=== PATIENT | female | born 1970 | race Caucasian/White ===

== ENCOUNTER 2021-11-21 14:11 | Emergency (ER) | payer BC ==
[~2021-11-21] VITALS: Ht 165.1 cm; Wt 88.6 kg
[2021-11-21 14:22] VITALS: TEMP 99.2
[2021-11-21 15:12] LABS: BASO % 0.3 % (0.0-2.0); EOS # 0.1 K/mm3 (0.0-0.7); EOS % 1.4 % (0.0-4.0); GRAN # 8.6 K/mm3 (1.4-6.5); GRAN % 86.1 % (42.2-75.2); HEMATOCRIT 44.8 % (37.0-47.0); LYMPH # 0.7 K/mm3 (1.2-3.4); MEAN CELL VOLUME 94 fl (80.0-100.0); MEAN CORPUSCULAR HEMOGLOBIN 32 pg (27-31); MEAN CORPUSCULAR HGB CONC 34 g/dl (33.0-37.0); MEAN PLATELET VOLUME 10.8 fl (7.4-10.4); MONO # 0.5 K/mm3 (0.1-0.6); MONO % 4.8 % (1.7-9.3); PLATELET COUNT 231 K/mm3 (130-400); RED BLOOD COUNT 4.76 M/mm3 (4.10-5.30); REDCELL DISTRIBUTION WIDTH-CV 13.3 % (11.5-14.5)
[2021-11-21 15:27] LABS: BILIRUBIN,TOTAL 0.9 mg/dL (0.2-1.2); CALCIUM 8.7 mg/dL (8.4-10.2); CREATININE, serum 0.73 mg/dL (0.57-1.11); POTASSIUM 3.7 mmol/L (3.5-4.5); TOTAL PROTEIN 7.2 gm/dL (6.2-8.1)
[2021-11-21 15:52] LABS: COLLECTION METHOD CLEAN CATCH
[2021-11-21 15:58] LABS: MUCOUS Present (NOT PRESENT); PH 5 (5-8); SQUAMOUS EPITHELIAL 0-2 /hpf (0-10); URINE APPEARANCE Clear (CLEAR/HAZY); URINE BACTERIA None Seen /hpf (NONE SEEN); URINE BILIRUBIN Negative (NEGATIVE); URINE BLOOD Negative (NEGATIVE); URINE COLOR Yellow (YELLOW); URINE GLUCOSE Negative (NEGATIVE); URINE KETONE 1+ (NEGATIVE); URINE LEUKOCYTE ESTERASE Negative (NEGATIVE); URINE NITRATE Negative (NEGATIVE); URINE PROTEIN(semi-quant) Negative (NEGATIVE); URINE RBC 0-2 /hpf (0-2); URINE UROBILINOGEN Negative (NEGATIVE)
[2021-11-21] MEDS ORDERED: PROMETHAZINE12.5 M5 PO (16:35)
[2021-11-21 17:27] VITALS: BP 112/78; PULSE 100
== END 2021-11-21 17:31 | disposition home or self-care (01) ==
LOC: COL.ER 14:11
PROVIDERS: Physician Assistant
DX: K52.9 Noninfective gastroenteritis and colitis, unspecified (principal); Z88.6 Allergy status to analgesic agent
CPT/HCPCS: J2270; J2405; J7030

== ENCOUNTER 2022-01-27 06:23 | Day surgery (SDC) | payer BC ==
[~2022-01-27] VITALS: Ht 165.1 cm; Wt 90.7 kg
[2022-01-27] VITALS (8 sets, daily range): BP systolic 102–129; BP diastolic 61–77; PULSE 63–83; TEMP 97.3
[~2022-01-27 06:23] MED LIST: PROMETHAZINE12.5 M5 PO
[2022-01-27] MEDS ORDERED: CELEXA40 MG PO (07:41)
[2022-01-27] MEDS ORDERED: XANAX 1MG1 MG PO (07:42)
[2022-01-27] MEDS ORDERED: AMBIEN 10MG10 MG PO (07:42)
[2022-01-27] MEDS ORDERED: MAXALT10 MG PO (07:43)
[2022-01-27] MEDS ORDERED: TYLENOL 8 HR PO (07:44)
[2022-01-27] MEDS ORDERED: PRINIVIL10 MG PO (07:44)
--- NOTE | 2022-01-27 09:45 | NUR ---
Patient returns to [facility] per cart from surgery accompanied by Zainab RN and Giorgio ALONZO along with Twyla patel LIBRARY SUPERVISOR. Patient is awake and alert. 2x2 abdominal dressing clean, dry, and intact. IV fluids infusing and site is free of redness. Temp 97.4. Requests ice chips and given. Siderails up x2 and call light in reach.
[2022-01-27] MEDS ORDERED: ULTRAM 50MG TAB50 MG PO (09:49)
--- NOTE | 2022-01-27 09:50 | NUR ---
Tearful and complains of pain. Toradol 30mg IV given by TRANSPORT NURSE. Cool cloth to forehead.
--- NOTE | 2022-01-27 10:00 | NUR ---
Remained tearful and was given Fentanyl 50mcg by anesthesia for continued pain at 8/10.
--- NOTE | 2022-01-27 10:15 | NUR ---
More comfortable and is able to rest with eyes closed.
--- NOTE | 2022-01-27 10:30 | NUR ---
Eating toast and drinking water without complaints of nausea. Denies increasing pain and states is more comfortable.
--- NOTE | 2022-01-27 10:45 | NUR ---
Resting comfortabley and denies further discomfort and denies nausea.
--- NOTE | 2022-01-27 11:01 | NUR ---
Ultram 50mg po given for pain at 4/10 and in preparation for ride home.
--- NOTE | 2022-01-27 11:15 | NUR ---
Resting and drinking water.
--- NOTE | 2022-01-27 11:45 | NUR ---
Awaits ride home. IV discontinued and patient is able to dress self.
--- NOTE | 2022-01-27 12:22 | NUR ---
Dismissal instructions given and voices understanding of home cares.
== END 2022-01-27 12:22 | disposition home or self-care (01) ==
LOC: SDCO 06:23
DX: K42.9 Umbilical hernia without obstruction or gangrene (principal)
CPT/HCPCS: J0690; J1885; J2250; J2704; J3010; J7120